=== PATIENT | male | born 1960 | race Caucasian/White ===

== ENCOUNTER 2017-07-18 05:36 | Outpatient (CLI) | payer MEDICAID | END 2017-07-18 05:37 | disposition critical access hospital (66) | LOC: EMS 05:36 | PROVIDERS: ATTEND Surgery | DX: R41.82 Altered mental status, unspecified (principal); R73.09 Other abnormal glucose; S00.81XA Abrasion of other part of head, initial encounter; S00.31XA Abrasion of nose, initial encounter; X58.XXXA Exposure to other specified factors, initial encounter; Y92.59 Other trade areas as the place of occurrence of the external cause | CPT/HCPCS: A0425; A0427 ==

== ENCOUNTER 2017-07-18 05:53 | Emergency (ER) | payer MEDICAID ==
[2017-07-18] MEDS ORDERED: OCTREOTIDE 100 MCG/ML VIAL SUBQ STA (06:06)
[2017-07-18] MEDS ORDERED: TETANUS/DIPHTHERIA/PERTUSSIS 0.5 ML SYRINGE IM ONE (06:28)
[2017-07-18 06:32] LABS: BASOPHILS % (AUTO) 0.3 %; EOSINOPHILS % (AUTO) 0.2 %; HGB - HEMOGLOBIN 14.2 g/dL (14.0-18.0); LYMPHOCYTES # (AUTO) 0.9 10^3/uL (1.5-3.5); LYMPHOCYTES % (AUTO) 8.6 %; MEAN CORPUSCULAR HGB CONC 33.9 g/dL (32.0-36.0); MEAN CORPUSCULAR VOLUME 94.5 fL (80.0-94.0); MEAN PLATELET VOLUME 7.6 fL (7.4-11.4); MONOCYTES # (AUTO) 0.8 10^3/uL (0.0-1.0); MONOCYTES % (AUTO) 7.2 %; NEUTROPHILS # (AUTO) 9.2 10^3/uL (1.5-6.6); NEUTROPHILS % (AUTO) 83.7 %; PLT - PLATELET COUNT 177 10^3/uL (130-450); RED BLOOD COUNT 4.43 10^6/uL (4.70-6.10); RED CELL DISTRIBUTION WIDTH 16.2 % (12.0-15.0); WHITE BLOOD COUNT 10.9 x10^3/uL (4.8-10.8)
--- NOTE | 2017-07-18 06:43 | ED Physician Documentation ---
PD HPI ALTERED MENTAL STATUS - Stated complaint Stated Complaint: AMS - Chief complaint Chief Complaint: Laceration - History obtained from History obtained from: Patient, EMS - History of Present Illness Timing - onset: Today Timing - details: Now resolved Quality / character: Unresponsive Contributing factors: Diabetic Basline status: Alert and oriented X 3 Treatment RESERVATIONS MANAGER: Accucheck, D50 Similar symptoms before: Has not had sx before Recently seen: Not recently seen - Additional information Additional information: Patient is a 57 year old male with a history of diabetes, htn previous stroke who was brought into the emergency department after being found down. Patient was found face down outside his hotel, he was aroused and brought inside. EMS was called. When ems arrived patient was found to have a blood glucose of 36 and was treated with D 50. Upon arrival in the emergency department patient was awake and alert with multiple abrasions and a blood glucose of 89. Review of Systems Constitutional: denies: Fever, Chills Eyes: denies: Decreased vision Ears: denies: Ear pain, Drainage/discharge Nose: reports: Epistaxis Throat: denies: Dental pain / toothache, Sore throat Cardiac: denies: Chest pain / pressure, Palpitations : reports: Reviewed and negative Skin: reports: Rash, Lesions, Abrasion (s), Laceration (s) Musculoskeletal: reports: Extremity pain. denies: Neck pain, Back pain Neurologic: reports: Syncope, Head injury, LOC. denies: Generalized weakness, Focal weakness Immunocompromised: denies: Immunocompromised PD PAST MEDICAL HISTORY - Past Medical History Past Medical History: Yes Cardiovascular: High cholesterol Neuro: CVA Endocrine/Autoimmune: Other GI: GERD Other Past Medical History: prediabetes - Past Surgical History Past Surgical History: No - Present Medications Home Medications: Ambulatory Orders Medication Instructions Recorded Confirmed Aspirin 81 mg PO DAILY 07/18/17 07/18/17 Atorvastatin Calcium [Lipitor] 80 mg PO DAILY 07/18/17 07/18/17 Glimepiride 2 mg PO DAILY 07/18/17 07/18/17 Lisinopril/Hydrochlorothiazide 20 - 25 mg PO DAILY 07/18/17 07/18/17 [Lisinopril-Hctz 20-25 mg Tab] Naproxen Sodium [Naproxen Cr] 500 mg PO BID 07/18/17 07/18/17 Omeprazole 20 mg PO DAILY 07/18/17 07/18/17 - Allergies Allergies/Adverse Reactions: Allergies Allergy/AdvReac Type Severity Reaction Status Date / Time No Known Drug Allergies Allergy Verified 07/18/17 06:03 - Social History Does the pt smoke?: Yes Smoking Status: Current every day smoker Does the pt drink ETOH?: Yes ETOH Use: Beer Does the pt have substance abuse?: No - Immunizations Immunizations are current?: Yes PD ED PE NORMAL - Vitals Vital signs reviewed: Yes - General General: Alert and oriented X 3 - HEENT HEENT: PERRL - Neck Neck: Supple, no meningeal sign, No bony TTP - Cardiac Cardiac: No murmur - Respiratory Respiratory: No respiratory distress - Abdomen Abdomen: Soft, Non tender, Non distended - Neuro Neuro: Alert and oriented X 3, rn observation 2-12 intact, No motor deficit, No sensory deficit, Normal speech Eye Opening: Spontaneous Motor: Obeys Commands Verbal: Oriented GCS Score: 15 - Psych Psych: Normal mood PD ED PE EXPANDED - HEENT HEENT: Head injury (abrasion and hematoma above right eye), PERRL. No: Dental trauma, Dental TTP - Cardiac Cardiac: Abnormal Rhythm - Derm Derm: Abrasion (s) - Extremities Extremities: Right knee (abrasion to right knee) Results - Vitals Vitals: Vital Signs - 24 hr 07/18/17 07/18/17 05:54 06:55 Temperature 97.0 C H Heart Rate 92 79 Respiratory 23 16 Rate Blood Pressure 159/105 H 134/86 H O2 Saturation 100 96 Oxygen O2 Source Room air - EKG (time done) 606 Rate: Rate (enter#) (76) Rhythm: NSR [place]: Normal Ischemia: T wave inversion, Non specific changes Compare to prior EKG: Old EKG unavailable - Labs Labs: Laboratory Tests 07/18/17 07/18/17 07/18/17 06:22 06:22 06:22 WBC 10.9 H RBC 4.43 L Hgb 14.2 Hct 41.8 L MCV 94.5 H MCH 32.0 H MCHC 33.9 RDW 16.2 H Plt Count 177 MPV 7.6 Neut # 9.2 H Lymph # 0.9 L Braxton # 0.8 Eos # 0.0 Baso # 0.0 Absolute Nucleated RBC 0.00 Nucleated RBC % 0.0 Sodium 135 Potassium 3.6 Chloride 106 Carbon Dioxide 22 Anion Gap 7.0 BUN 32 H Creatinine 1.1 Estimated GFR (MDRD) 69 L Glucose 63 L Calcium 8.6 Phosphorus 1.5 L Magnesium 1.6 L Total Bilirubin 0.9 AST 47 H ALT 16 Alkaline Phosphatase 55 Total Creatine Kinase 589 H Troponin I 1.14 H* B-Natriuretic Peptide Total Protein 7.8 Albumin 4.0 Globulin 3.8 Albumin/Globulin Ratio 1.1 Lipase 37 Ethyl Alcohol 07/18/17 07/18/17 06:22 06:22 WBC RBC Hgb Hct MCV MCH MCHC RDW Plt Count MPV Neut # Lymph # Braxton # Eos # Baso # Absolute Nucleated RBC Nucleated RBC % Sodium Potassium Chloride Carbon Dioxide Anion Gap BUN Creatinine Estimated GFR (MDRD) Glucose Calcium Phosphorus Magnesium Total Bilirubin AST ALT Alkaline Phosphatase Total Creatine Kinase Troponin I B-Natriuretic Peptide 718 H Total Protein Albumin Globulin Albumin/Globulin Ratio Lipase Ethyl Alcohol < 5.0 - Rads (name of study) ct head Radiology: Final report received (no acute findings, ), See rad report ct face Radiology: Final report received (mulitple old facial bone fractures and opacification of sinuses ) knee left Radiology: Final report received (no acute fracutre or dislocation) PD MEDICAL DECISION MAKING - ED course Complexity details: reviewed old records, reviewed results, re-evaluated patient , considered differential, d/w patient, d/w behavioral health consultant ED course: Patient was seen and examined at beside. Patient was awake and alert. patient was given warm blankets and bedside blood glucose was checked and found to be 89. ekg was performed and patient was placed on a monitor. IV access was gained and labs were drawn. patient was treated with octreotide. patients blood work showed hypoglcemia and due to the fact that patient was on sulfonylurea patient was started on a D5 drip. Patient was also found to have elevated troponin. [facility] called and the case was discussed with the jig worker Dr. Santillan. He stated that transfer was appropriate but he would not start a heparin drip as the elevated troponin was likely secondary to the event as opposed to cardiac in nature since the patient is chest pain free. He stated admit to the hospitalist. Hospitalist was contacted and the case was discussed with Lion who agreed to admission Departure - Departure Disposition: 02 Transfer Acute Care Hosp Clinical Impression: Syncope and collapse, Elevated troponin, Hypoglycemia Condition: Stable
[2017-07-18 06:44] LABS: ALBUMIN/GLOBULIN RATIO 1.1 (1.0-2.2); BILIRUBIN,TOTAL 0.9 mg/dL (0.2-1.0); CALCIUM 8.6 mg/dL (8.5-10.3); CREATININE 1.1 mg/dL (0.6-1.2); MAGNESIUM 1.6 mg/dL (1.7-2.8); PHOSPHORUS 1.5 mg/dL (2.5-4.6); TOTAL PROTEIN 7.8 g/dL (6.7-8.2)
[2017-07-18 06:55] VITALS: BP 134/86
--- NOTE | 2017-07-18 06:55 | XRAY Report ---
EXAM: CHEST RADIOGRAPHY EXAM DATE: 07/18/2017 06:49 AM. CLINICAL HISTORY: Fever. COMPARISON: None. TECHNIQUE: 1 view. FINDINGS: Lungs/Pleura: No alveolar consolidation or pleural effusion seen. No pneumothorax. Mediastinum: Mild cardiomegaly. Other: None. IMPRESSION: 1. Mild cardiomegaly. No acute abnormality seen. [facility] Referring Provider Line: [phone] SITE ID: [id number]
--- NOTE | 2017-07-18 06:55 | XRAY Preliminary Report ---
Exam: XR CHEST 1 VIEW X-RAY IMPRESSION: 1. Mild cardiomegaly. No acute abnormality seen. [facility] SITE ID: [id number]
--- NOTE | 2017-07-18 06:56 | XRAY Report ---
EXAM: LEFT KNEE RADIOGRAPHY EXAM DATE: 07/18/2017 06:49 AM. CLINICAL HISTORY: Fall, knee pain. COMPARISON: None. TECHNIQUE: 2 views. FINDINGS: Bones: No fracture seen. Joints: No dislocation. Joint spaces appear preserved. No joint effusion identified. Soft Tissues: Mild soft tissue swelling. IMPRESSION: 1. No acute osseous abnormality seen. 2. Mild soft tissue swelling. [facility] Referring Provider Line: [phone] SITE ID: [id number]
--- NOTE | 2017-07-18 06:57 | CT Preliminary Report ---
Exam: CT HEAD W/O IMPRESSION: Old left MCA territory infarct. No acute intracranial process identified. [facility] SITE ID: [id number]
--- NOTE | 2017-07-18 06:57 | CT Report ---
EXAM: CT HEAD EXAM DATE: 07/18/2017 06:42 AM. CLINICAL HISTORY: Fall, head and facial trauma, on aspirin. COMPARISON: None. TECHNIQUE: Multiaxial CT images were obtained from the foramen magnum to the vertex. Reformats: Coron al. IV contrast: None. In accordance with CT protocol optimization, one or more of the following dose reduction techniques w ere utilized for this exam: automated exposure control, adjustment of mA and/or KV based on patient s ize, or use of iterative reconstructive technique. FINDINGS: Parenchyma: No intraparenchymal hemorrhage. Old left parietal/posterior temporal lobe infarct, left M CA territory. No evidence of recent infarct. Extraaxial Spaces: Normal for age. No subdural or epidural collections identified. Ventricles: Normal in size and position. Sinuses and Orbits: Please see CT facial bones report. Bones: No evidence of fracture or calvarial defect. Other: None. IMPRESSION: Old left MCA territory infarct. No acute intracranial process identified. [facility] Referring Provider Line: [phone] SITE ID: [id number]
--- NOTE | 2017-07-18 07:05 | CT Report ---
EXAM: CT MAXILLOFACIAL WITHOUT CONTRAST EXAM DATE: 07/18/2017 06:42 AM. CLINICAL HISTORY: Fall, facial trauma. COMPARISONS: None. TECHNIQUE: Thin-section axial images were acquired of the face without contrast. Post-processing: Cor onal and sagittal reformats. Other: None. In accordance with CT protocol optimization, one or more of the following dose reduction techniques w ere utilized for this exam: automated exposure control, adjustment of mA and/or KV based on patient s ize, or use of iterative reconstructive technique. FINDINGS: Soft Tissue: Small hematoma above the right orbit. No fracture in this region. Orbits: No intraorbital hematoma, obvious globe injury or retained foreign body. Chronic appearing bilateral nasal bone fractures, mildly angulated to the left. Suspect old fractures of the lateral wall of the right maxillary antrum, orbit rim, left zygomatic arch, lateral wall of t he left orbit and lateral wall of the left maxillary antrum.. There is an air fluid level nearly opacifying the right maxillary antrum. This is contiguous with a p rominent periapical lucency seen related to the first maxillary molar tooth, potentially sinusitis of dental origin. Opacification of multiple right-sided ethmoid air cells. Other paranasal sinuses appe ar well aerated. Temporomandibular Joints: The temporomandibular joints are symmetric and normally located. Other: None. IMPRESSION: Small hematoma above the right orbit. No fracture in this region. Chronic appearing bilateral nasal bone fractures, mildly angulated to the left. Suspect old fractures of the lateral wall of the right maxillary antrum, orbit rim, left zygomatic arch, lateral wall of t he left orbit and lateral wall of the left maxillary antrum.. There is an air fluid level nearly opacifying the right maxillary antrum. This is contiguous with a p rominent periapical lucency seen related to the first maxillary molar tooth, potentially sinusitis of dental origin. Opacification of multiple right-sided ethmoid air cells. [facility] Referring Provider Line: [phone] SITE ID: [id number]
[2017-07-18] MEDS ORDERED: DEXTROSE 5%-0.45% NACL 1,000 ML IV SCH (08:00)
== END 2017-07-18 09:04 | disposition short-term general hospital (02) ==
LOC: ED 05:53
DX: R55 Syncope and collapse (principal); R79.89 Other specified abnormal findings of blood chemistry; E11.65 Type 2 diabetes mellitus with hyperglycemia; R94.31 Abnormal electrocardiogram [ECG] [EKG]; S80.211A Abrasion, right knee, initial encounter; S00.11XA Contusion of right eyelid and periocular area, initial encounter; X58.XXXA Exposure to other specified factors, initial encounter; Y92.59 Other trade areas as the place of occurrence of the external cause; E78.00 Pure hypercholesterolemia, unspecified; I10 Essential (primary) hypertension; F17.200 Nicotine dependence, unspecified, uncomplicated; Z79.82 Long term (current) use of aspirin
CPT/HCPCS: 36415; 70450; 70486; 71045; 73560; 80053; 80320; 82550; 83690; 83735; 83880; 84100; 84484; 85025; 90471; 90715; 93005; 96360; 96361; 96372; 99284; J2354; 99285

== ENCOUNTER 2017-07-18 19:10 | Outpatient (CLI) | payer MEDICAID | END 2017-07-18 19:11 | disposition short-term general hospital (02) | LOC: EMS 19:10 | PROVIDERS: ATTEND Surgery | DX: I48.91 Unspecified atrial fibrillation (principal); R79.89 Other specified abnormal findings of blood chemistry | CPT/HCPCS: A0425; A0426 ==